=== PATIENT | male | born 1950 | race Caucasian/White ===

== ENCOUNTER 2025-01-01 18:25 | Inpatient (IN) | payer OTHER, MEDICAID ==
[~2025-01-01] VITALS: Ht 182.9 cm; Wt 69.2 kg
[2025-01-01 19:30] VITALS: BP 140/59; PULSE 55; RESP 18; TEMP 97.9; O2SAT 93
[2025-01-01] MEDS ORDERED: DOCU-412 PO (20:26)
[2025-01-01] MEDS ORDERED: POLY119P3 PO (20:26)
[2025-01-01] MEDS ORDERED: TRAZ-252 PO (20:26)
[2025-01-01] MEDS ORDERED: ROSU10TA72 PO (20:26)
[2025-01-01] MEDS ORDERED: FURO40TA6 PO (20:26)
[2025-01-01] MEDS ORDERED: MELA5TAB40 PO (20:26)
[2025-01-01] MEDS ORDERED: CYAN500T56 PO (20:26)
[2025-01-01] MEDS ORDERED: SENN-395 PO (20:26)
[2025-01-01] MEDS ORDERED: LANS-74 PO (20:26)
[2025-01-01] MEDS ORDERED: IPRA3AMP23 NEB (20:26)
[2025-01-01] MEDS ORDERED: MULT400T14 PO (20:26)
[2025-01-01] MEDS ORDERED: MIRT-89 PO (20:26)
[2025-01-01] MEDS ORDERED: ASCO500 PO (20:26)
[2025-01-01] MEDS ORDERED: AMIO200T73 PO (20:26)
[2025-01-01] MEDS ORDERED: ONDANSETRON HCL 4 MG/2 ML VIAL IVP PRN (20:45)
[2025-01-01] MEDS: DOCUSATE SODIUM 250 MG CAPSULE PO SCH (21:00)
[2025-01-01] MEDS ORDERED: DOCUSATE SODIUM 100 MG CAPSULE PO SCH (21:00)
[2025-01-01] MEDS ORDERED: MISC MED-CONVERTED FROM AMBULATORY (Ipratropium/Albuterol Sulfate (Ipratr-Albuterol 0.5-3 NEB SCH (21:00)
[2025-01-01 21:58] LABS: BASOPHILS % (AUTO) 0.3 % (0.0-2.0); EOSINOPHILS % (AUTO) 2.8 % (1.0-6.0); HEMATOCRIT 31.6 % (41-53); HEMOGLOBIN 10.3 g/dL (13.5-17.5); LYMPHOCYTES # (AUTO) 0.6 K/uL (1.0-4.8); LYMPHOCYTES % (AUTO) 14.2 % (22.0-44.0); MEAN CORPUSCULAR HEMOGLOBIN 29.8 pg (26.0-34.0); MEAN CORPUSCULAR HGB CONC 32.4 G/dL (31.0-37.0); MEAN CORPUSCULAR VOLUME 92 fL (80-100); MONOCYTES # (AUTO) 0.3 K/uL (0.1-1.0); MONOCYTES % (AUTO) 8.3 % (2.0-9.0); NEUTROPHILS % (AUTO) 74.4 % (40.0-70.0); PLATELET COUNT (AUTO) 145 K/uL (150-450); RED BLOOD CELL COUNT(AUTO) 3.45 MIL/uL (4.50-5.90); RED CELL DISTRIBUTION WIDTH 16.7 % (11.5-14.5); WHITE BLOOD COUNT (AUTO) 4.1 K/uL (4.5-11.0)
[2025-01-01 22:08] LABS: ANION GAP 7 mmol/L (8-16); CALCIUM, TOTAL 8.4 mg/dL (8.8-10.5); CARBON DIOXIDE 30 mmol/L (22-29); CHLORIDE 99 mmol/L (98-107); CREATININE 0.71 mg/dL (0.60-1.30); GLOMERULAR FILTR. RATE CALC > 60 mL/min (>60); GLUCOSE,RANDOM 97 mg/dL (70-110); POTASSIUM 4.1 mmol/L (3.5-5.1); SODIUM SERUM 136 mmol/L (136-145); UREA NITROGEN, BLOOD 10 mg/dL (7-18)
[2025-01-01 22:13] LABS: ALANINE AMINOTRANSFERASE 31 U/L (12-78); ALBUMIN 1.8 g/dL (3.4-5.0); ALKALINE PHOSPHATASE 87 U/L (46-116); ASPARTATE AMINOTRANSFERASE 28 U/L (15-37); BILIRUBIN,TOTAL 0.7 mg/dL (0.1-1.0)
[2025-01-01] MEDS: LANSOPRAZOLE 15 MG CAPSULE PO SCH (22:15)
[2025-01-01] MEDS: SENNOSIDES/DOCUSATE SODIUM 8.6-50 MG TABLET PO SCH (22:15)
[2025-01-01] MEDS: AMIODARONE HCL 200 MG TABLET PO SCH (22:15)
[2025-01-01] MEDS: ASCORBIC ACID 500 MG TABLET PO SCH (22:15)
[2025-01-01] MEDS: MIRTAZAPINE 15 MG TABLET PO SCH (22:15)
[2025-01-01] MEDS: TraZODone HCL 50 MG TABLET PO SCH (22:17)
[2025-01-02] MEDS: HEPARIN SODIUM,PORCINE 5,000 UNITS/ML VIAL SQ SCH
[2025-01-02 05:30] VITALS: BP 136/57; PULSE 56; RESP 18; TEMP 97.7; O2SAT 95
[2025-01-02 07:16] LABS: BASOPHILS % (AUTO) 0.3 % (0.0-2.0); EOSINOPHILS % (AUTO) 4.2 % (1.0-6.0); HEMATOCRIT 30.4 % (41-53); HEMOGLOBIN 9.9 g/dL (13.5-17.5); LYMPHOCYTES # (AUTO) 0.6 K/uL (1.0-4.8); LYMPHOCYTES % (AUTO) 15.2 % (22.0-44.0); MEAN CORPUSCULAR HEMOGLOBIN 29.9 pg (26.0-34.0); MEAN CORPUSCULAR HGB CONC 32.5 G/dL (31.0-37.0); MEAN CORPUSCULAR VOLUME 92 fL (80-100); MONOCYTES # (AUTO) 0.4 K/uL (0.1-1.0); MONOCYTES % (AUTO) 9.8 % (2.0-9.0); NEUTROPHILS # (AUTO) 2.7 K/uL (1.8-7.7); NEUTROPHILS % (AUTO) 70.5 % (40.0-70.0); PLATELET COUNT (AUTO) 169 K/uL (150-450); RED CELL DISTRIBUTION WIDTH 16.5 % (11.5-14.5); WHITE BLOOD COUNT (AUTO) 3.9 K/uL (4.5-11.0)
[2025-01-02 08:00] LABS: ANION GAP 6 mmol/L (8-16); CALCIUM, TOTAL 8.3 mg/dL (8.8-10.5); CARBON DIOXIDE 29 mmol/L (22-29); CHLORIDE 102 mmol/L (98-107); CREATININE 0.76 mg/dL (0.60-1.30); GLOMERULAR FILTR. RATE CALC > 60 mL/min (>60); GLUCOSE,RANDOM 95 mg/dL (70-110); POTASSIUM 3.9 mmol/L (3.5-5.1); SODIUM SERUM 137 mmol/L (136-145); UREA NITROGEN, BLOOD 9 mg/dL (7-18)
[2025-01-02] MEDS: CYANOCOBALAMIN 500 MCG TABLET PO SCH (08:43)
[2025-01-02] MEDS: ROSUVASTATIN CALCIUM 10 MG TABLET PO SCH (08:43)
[2025-01-02] MEDS: MULTIVITAMINS, THERAPEUTIC TABLET PO SCH (08:43)
[2025-01-02] MEDS: FUROSEMIDE 40 MG TABLET PO SCH (08:43)
[2025-01-02 08:52] VITALS: BP 130/56; PULSE 50; RESP 18; TEMP 97.7; O2SAT 92
[2025-01-02] MEDS: MAGNESIUM OXIDE 400 MG TABLET PO ONE (14:40)
[2025-01-02 16:46] VITALS: BP 130/56; PULSE 50; RESP 18; TEMP 97.5; O2SAT 92
[2025-01-02 19:14] VITALS: BP 128/58; PULSE 58; RESP 18; TEMP 98.1; O2SAT 95
[2025-01-03 05:35] VITALS: BP 126/63; PULSE 56; RESP 18; TEMP 98.1; O2SAT 95
[2025-01-03 07:13] VITALS: BP 124/65; PULSE 58; RESP 18; TEMP 98.4; O2SAT 96
[2025-01-03 15:06] VITALS: BP 117/58; PULSE 61; RESP 20; TEMP 98.1; O2SAT 95
[2025-01-03 19:00] VITALS: BP 141/60; PULSE 61; RESP 19; TEMP 97.8; O2SAT 96
[2025-01-03] MEDS: IPRATROPIUM BROMIDE 0.5 MG/2.5 ML NEB SOLUTION NEB SCH (20:42)
[2025-01-03] MEDS: ALBUTEROL SULFATE 2.5 MG/0.5 ML NEB SOLUTION NEB SCH (20:42)
[2025-01-03 20:47] VITALS: PULSE 55; RESP 18; O2SAT 91
[2025-01-03 20:50] VITALS: PULSE 55; RESP 18; O2SAT 91
[2025-01-04 04:00] VITALS: BP 131/60; PULSE 60; RESP 19; TEMP 97.8; O2SAT 95
[2025-01-04 07:52] VITALS: BP 114/66; PULSE 55; RESP 18; TEMP 97.3; O2SAT 93
[2025-01-04 14:06] VITALS: PULSE 51; PULSE 52; RESP 12; O2SAT 93
[2025-01-04 14:21] VITALS: PULSE 50; RESP 12; O2SAT 100
[2025-01-04 15:11] VITALS: BP 125/60; PULSE 55; RESP 18; TEMP 97.7; O2SAT 91
[2025-01-04 19:40] VITALS: BP 122/54; PULSE 52; RESP 18; TEMP 97.3; O2SAT 95
[2025-01-05] VITALS (11 sets, daily range): BP systolic 124–134; BP diastolic 49–62; PULSE 24–58; RESP 14–18; TEMP 97.3–98.1; O2SAT 93–100
[2025-01-06 06:30] VITALS: BP 128/61; PULSE 58; RESP 18; TEMP 98.1; O2SAT 97
[2025-01-06 07:48] VITALS: BP 120/60; PULSE 56; RESP 19; TEMP 97.5; O2SAT 94
[2025-01-06 08:51] VITALS: PULSE 58; RESP 18; O2SAT 96
[2025-01-06] MEDS ORDERED: CHLORHEXIDINE GLUCONATE 4% 118 ML TOPICAL LIQUID TP PRN (11:30)
[2025-01-06 15:51] VITALS: BP_SYST 128; BP_SYST 139; BP_DIAS 64; BP_DIAS 87; PULSE 58; RESP 20; TEMP 97.5; O2SAT 95
[2025-01-06 17:00] LABS: CANDIDA AURIS PCR,SURVEILLANCE Not Detected C(t) (Not Detectd)
[2025-01-06 19:48] VITALS: BP 128/68; PULSE 52; RESP 18; TEMP 97.5; O2SAT 95
[2025-01-07 04:52] VITALS: BP 111/58; PULSE 57; RESP 18; TEMP 97.7; O2SAT 95
[2025-01-07 08:10] VITALS: BP 139/69; PULSE 53; RESP 18; TEMP 97.7; O2SAT 99
[2025-01-07 17:38] VITALS: BP 137/61; PULSE 56; RESP 20; TEMP 97.7; O2SAT 96
[2025-01-07 20:16] VITALS: BP 112/58; PULSE 58; RESP 20; TEMP 97.6; O2SAT 98
[2025-01-08 04:19] VITALS: BP 121/64; PULSE 60; RESP 19; TEMP 97.8; O2SAT 96
[2025-01-08 07:11] VITALS: PULSE 64; RESP 18; O2SAT 95
[2025-01-08 07:39] VITALS: BP 134/57; PULSE 53; RESP 18; TEMP 97.7; O2SAT 100
[2025-01-08 19:32] VITALS: BP 134/58; PULSE 58; RESP 19; TEMP 97.7; O2SAT 95
[2025-01-09 04:40] VITALS: BP 136/59; PULSE 62; RESP 19; TEMP 98; O2SAT 95
[2025-01-09 07:41] VITALS: BP 111/40; PULSE 60; RESP 19; TEMP 97.5; O2SAT 96
[2025-01-09 11:56] LABS: BASOPHILS % (AUTO) 0.6 % (0.0-2.0); EOSINOPHILS % (AUTO) 1.1 % (1.0-6.0); HEMATOCRIT 35.5 % (41-53); HEMOGLOBIN 11.7 g/dL (13.5-17.5); LYMPHOCYTES # (AUTO) 0.6 K/uL (1.0-4.8); LYMPHOCYTES % (AUTO) 9.3 % (22.0-44.0); MEAN CORPUSCULAR HEMOGLOBIN 29.3 pg (26.0-34.0); MEAN CORPUSCULAR HGB CONC 32.9 G/dL (31.0-37.0); MEAN CORPUSCULAR VOLUME 89 fL (80-100); MONOCYTES # (AUTO) 0.6 K/uL (0.1-1.0); MONOCYTES % (AUTO) 10.2 % (2.0-9.0); NEUTROPHILS # (AUTO) 4.8 K/uL (1.8-7.7); NEUTROPHILS % (AUTO) 78.8 % (40.0-70.0); PLATELET COUNT (AUTO) 169 K/uL (150-450); RED BLOOD CELL COUNT(AUTO) 3.98 MIL/uL (4.50-5.90)
[2025-01-09 12:04] LABS: ANION GAP 5 mmol/L (8-16); CALCIUM, TOTAL 8.8 mg/dL (8.8-10.5); CARBON DIOXIDE 36 mmol/L (22-29); CHLORIDE 99 mmol/L (98-107); GLOMERULAR FILTR. RATE CALC > 60 mL/min (>60); GLUCOSE,RANDOM 105 mg/dL (70-110); POTASSIUM 4.3 mmol/L (3.5-5.1); SODIUM SERUM 140 mmol/L (136-145); UREA NITROGEN, BLOOD 22 mg/dL (7-18)
[2025-01-09] MEDS: RINGERS SOLUTION,LACTATED 500 ML IV ONE (12:30)
[2025-01-09 15:59] VITALS: BP 129/67; PULSE 59; RESP 19; TEMP 97.5; O2SAT 95
[2025-01-09 19:17] VITALS: PULSE 53; RESP 20; O2SAT 93
[2025-01-09 19:21] VITALS: BP 131/60; PULSE 53; RESP 18; TEMP 98.1; O2SAT 92
[2025-01-09] MEDS: AMIODARONE HCL 200 MG TABLET PO SCH (21:01)
[2025-01-10 05:23] VITALS: BP 126/52; PULSE 52; RESP 18; TEMP 98.2; O2SAT 95
[2025-01-10 07:43] VITALS: BP 136/62; PULSE 50; RESP 20; TEMP 97.5; O2SAT 95
[2025-01-10 08:59] VITALS: BP 117/58; PULSE 55; RESP 18; TEMP 97.8; O2SAT 97
[2025-01-10] MEDS: LIDOCAINE 5% TRANSDERMAL PATCH TD ONE (14:48)
[2025-01-10 15:32] LABS: CALCIUM, TOTAL 8.7 mg/dL (8.8-10.5); CARBON DIOXIDE 38 mmol/L (22-29); CREATININE 1.05 mg/dL (0.60-1.30); GLOMERULAR FILTR. RATE CALC > 60 mL/min (>60); GLUCOSE,RANDOM 121 mg/dL (70-110); POTASSIUM 4.1 mmol/L (3.5-5.1); SODIUM SERUM 137 mmol/L (136-145); UREA NITROGEN, BLOOD 21 mg/dL (7-18)
[2025-01-10 15:39] LABS: ANION GAP 2 mmol/L (8-16); CHLORIDE 97 mmol/L (98-107)
[2025-01-10 16:48] VITALS: BP 128/61; PULSE 52; RESP 18; TEMP 98.4; O2SAT 95
[2025-01-10 19:51] VITALS: BP 129/61; PULSE 52; RESP 18; TEMP 98.4; O2SAT 97
[2025-01-10 21:39] LABS: APPEARANCE,URINE CLEAR (CLEAR); BILIRUBIN,URINE NEGATIVE (NEGATIVE); COLOR,URINE YELLOW (YELLOW); GLUCOSE, URINE (UA) NEGATIVE (NEGATIVE); KETONES,URINE NEGATIVE (NEGATIVE); LEUKOCYTE ESTERASE ,URINE NEGATIVE (NEGATIVE); NITRATE,URINE NEGATIVE (NEGATIVE); OCCULT BLOOD,URINE NEGATIVE (NEGATIVE); PH,URINE 5.5 (5.0-8.0); PROTEIN,URINE NEGATIVE (NEGATIVE); SPECIFIC GRAVITIY, URINE 1.019 (1.003-1.030); UROBILINOGEN,URINE <=1.0 mg/dL (<=1.0)
[2025-01-10 21:55] LABS: BACTERIA,URINE Rare /HPF (None Seen); RBC,URINE 0-2 /HPF (0-2); SQUAMOUS EPITHELIAL CELL,UR Rare /LPF (None Seen); WBC,URINE 0-2 /HPF (0-5)
[2025-01-11] VITALS (8 sets, daily range): BP systolic 107–124; BP diastolic 57–66; PULSE 52–60; RESP 18–20; TEMP 97.5–98.1; O2SAT 93–100
[2025-01-12 05:30] VITALS: BP 109/49; PULSE 54; RESP 18; TEMP 97.5; O2SAT 94
[2025-01-12 07:08] LABS: BASOPHILS % (AUTO) 0.6 % (0.0-2.0); HEMATOCRIT 35.8 % (41-53); HEMOGLOBIN 11.9 g/dL (13.5-17.5); LYMPHOCYTES # (AUTO) 0.9 K/uL (1.0-4.8); LYMPHOCYTES % (AUTO) 14.7 % (22.0-44.0); MEAN CORPUSCULAR HGB CONC 33.1 G/dL (31.0-37.0); MEAN CORPUSCULAR VOLUME 88 fL (80-100); MONOCYTES # (AUTO) 0.5 K/uL (0.1-1.0); MONOCYTES % (AUTO) 7.8 % (2.0-9.0); NEUTROPHILS # (AUTO) 4.3 K/uL (1.8-7.7); NEUTROPHILS % (AUTO) 72.9 % (40.0-70.0); PLATELET COUNT (AUTO) 165 K/uL (150-450); RED BLOOD CELL COUNT(AUTO) 4.08 MIL/uL (4.50-5.90); RED CELL DISTRIBUTION WIDTH 16.8 % (11.5-14.5); WHITE BLOOD COUNT (AUTO) 5.8 K/uL (4.5-11.0)
[2025-01-12 07:22] LABS: ANION GAP 1 mmol/L (8-16); CALCIUM, TOTAL 8.6 mg/dL (8.8-10.5); CARBON DIOXIDE 37 mmol/L (22-29); CHLORIDE 99 mmol/L (98-107); CREATININE 0.89 mg/dL (0.60-1.30); GLOMERULAR FILTR. RATE CALC > 60 mL/min (>60); GLUCOSE,RANDOM 102 mg/dL (70-110); POTASSIUM 3.7 mmol/L (3.5-5.1); SODIUM SERUM 137 mmol/L (136-145); UREA NITROGEN, BLOOD 21 mg/dL (7-18)
[2025-01-12 08:00] VITALS: PULSE 59; RESP 18; O2SAT 96
[2025-01-12] MEDS: AMIODARONE HCL 200 MG TABLET PO SCH (08:49)
[2025-01-12 15:40] VITALS: BP 117/67; PULSE 55; RESP 18; TEMP 97.8; O2SAT 90
[2025-01-12 20:00] VITALS: PULSE 52; RESP 16; O2SAT 97
[2025-01-13] VITALS (9 sets, daily range): BP systolic 108–143; BP diastolic 49–70; PULSE 47–59; RESP 16–18; TEMP 97.5–98.4; O2SAT 90–99
[2025-01-14 05:44] VITALS: BP 129/56; PULSE 50; RESP 18; TEMP 97.7; O2SAT 95
[2025-01-14 07:32] VITALS: BP 124/58; PULSE 54; RESP 18; TEMP 97.9; O2SAT 96
[2025-01-14 08:44] VITALS: PULSE 51; RESP 20; O2SAT 93
[2025-01-14 14:59] VITALS: BP 128/61; PULSE 52; RESP 20; TEMP 98.4; O2SAT 95
[2025-01-14 20:38] VITALS: BP 113/55; PULSE 58; RESP 18; TEMP 97.4; O2SAT 94
[2025-01-14 20:54] VITALS: PULSE 55; RESP 16; RESP 20; O2SAT 95
[2025-01-15] VITALS (7 sets, daily range): BP systolic 117–148; BP diastolic 44–68; PULSE 52–57; RESP 18–20; TEMP 97.5–98.4; O2SAT 95–100
[2025-01-16 05:10] VITALS: BP 132/65; PULSE 52; RESP 18; TEMP 97.3; O2SAT 97
[2025-01-16 08:07] VITALS: BP 121/56; PULSE 51; RESP 18; TEMP 97.5; O2SAT 98
[2025-01-16 08:14] VITALS: PULSE 53; RESP 16; O2SAT 97
[2025-01-16 15:31] VITALS: BP 112/52; PULSE 60; RESP 18; TEMP 98.2; O2SAT 95
[2025-01-16 19:33] VITALS: BP 128/66; PULSE 52; RESP 52; TEMP 97.5; O2SAT 95
[2025-01-17 04:12] VITALS: BP 128/78; PULSE 57; RESP 18; TEMP 97.5; O2SAT 100
[2025-01-17 08:00] VITALS: BP 111/61; PULSE 66; RESP 18; TEMP 98.1; O2SAT 96
[2025-01-17 20:39] VITALS: BP 107/50; PULSE 56; RESP 18; TEMP 98.8; O2SAT 98
[2025-01-18 02:46] VITALS: PULSE 54; RESP 16; O2SAT 96
[2025-01-18 03:00] VITALS: PULSE 56; RESP 16; O2SAT 99
[2025-01-18 05:48] VITALS: BP 124/62; PULSE 58; RESP 18; TEMP 97.5; O2SAT 95
[2025-01-18 08:52] VITALS: BP 130/58; PULSE 52; RESP 18; TEMP 97.7; O2SAT 95
[2025-01-18 20:02] VITALS: BP 104/48; PULSE 56; RESP 18; TEMP 97.5; O2SAT 97
[2025-01-19 07:18] VITALS: PULSE 51; RESP 18; O2SAT 98
[2025-01-19 08:01] VITALS: BP 124/62; PULSE 50; RESP 18; TEMP 97.3; O2SAT 98
[2025-01-19 15:55] VITALS: BP 112/54; PULSE 47; RESP 18; TEMP 97.5; O2SAT 98
[2025-01-19 20:00] VITALS: BP 122/59; PULSE 50; RESP 19; TEMP 97.5; O2SAT 95
[2025-01-19 20:29] VITALS: PULSE 51; RESP 18; O2SAT 98
[2025-01-19 20:44] VITALS: PULSE 51; RESP 18; O2SAT 99
[2025-01-20] VITALS (7 sets, daily range): BP systolic 102–111; BP diastolic 53–61; PULSE 50–70; RESP 18–20; TEMP 97.3–98.6; O2SAT 91–99
[2025-01-20] MEDS: MELATONIN 5 MG TABLET PO PRN (20:32)
[2025-01-21] VITALS (11 sets, daily range): BP systolic 112–145; BP diastolic 57–70; PULSE 50–75; RESP 16–20; TEMP 97.5–97.7; O2SAT 94–99
[2025-01-22 04:50] VITALS: BP 119/87; PULSE 58; RESP 20; TEMP 97.5; O2SAT 97
[2025-01-22 08:33] VITALS: BP 133/62; PULSE 54; RESP 17; TEMP 97.8; O2SAT 96
[2025-01-22 16:00] VITALS: BP 129/68; PULSE 59; RESP 18; TEMP 98; O2SAT 97
[2025-01-22 19:53] VITALS: BP 120/81; PULSE 78; RESP 18; TEMP 98.6; O2SAT 96
[2025-01-23 04:20] VITALS: BP 120/65; PULSE 60; RESP 19; TEMP 97.5; O2SAT 97
[2025-01-23 08:00] VITALS: PULSE 70; RESP 16; O2SAT 98
[2025-01-23 08:22] VITALS: BP 123/53; PULSE 48; RESP 18; TEMP 97.7; O2SAT 96
[2025-01-23 16:02] VITALS: BP 130/59; PULSE 64; RESP 18; TEMP 98; O2SAT 98
[2025-01-23 20:00] VITALS: BP 104/63; PULSE 53; RESP 20; TEMP 98.4; O2SAT 95
[2025-01-23 20:10] VITALS: PULSE 66; RESP 16; O2SAT 98
[2025-01-24 04:00] VITALS: BP 139/84; PULSE 55; RESP 18; TEMP 98.1; O2SAT 95
[2025-01-24 07:00] VITALS: BP 128/79; PULSE 60; RESP 18; TEMP 98.1; O2SAT 96
[2025-01-24] MEDS ORDERED: BENZOCAINE/MENTHOL [CEPACOL] LOZENGE PO PRN (11:45)
[2025-01-24 13:42] VITALS: PULSE 52; RESP 18; O2SAT 94
[2025-01-24 13:57] VITALS: PULSE 52; RESP 18; O2SAT 94
[2025-01-24 15:00] VITALS: BP 104/50; PULSE 54; RESP 18; TEMP 98; O2SAT 99
[2025-01-24 20:41] VITALS: BP 114/64; PULSE 52; RESP 18; TEMP 97.7; O2SAT 95
[2025-01-25 05:32] VITALS: BP 114/53; PULSE 53; RESP 18; TEMP 97.5; O2SAT 95
[2025-01-25 08:00] VITALS: BP 121/59; PULSE 54; RESP 19; TEMP 97.7; O2SAT 94
[2025-01-25 16:06] VITALS: BP 99/80; PULSE 51; RESP 18; TEMP 97.9; O2SAT 95
[2025-01-25 19:16] VITALS: BP 117/58; PULSE 60; RESP 18; TEMP 97.5; O2SAT 94
[2025-01-26 04:50] VITALS: BP 125/64; PULSE 52; RESP 18; TEMP 97.8; O2SAT 96
[2025-01-26 08:08] VITALS: PULSE 61; RESP 18; O2SAT 95
[2025-01-26 16:14] VITALS: BP 124/54; PULSE 87; RESP 18; TEMP 97.9; O2SAT 96
[2025-01-26 19:55] VITALS: BP 127/72; PULSE 57; RESP 18; TEMP 97.5; O2SAT 96
[2025-01-27 05:00] VITALS: BP 131/64; PULSE 50; RESP 18; TEMP 98.1; O2SAT 95
[2025-01-27 07:06] VITALS: PULSE 55; RESP 18; O2SAT 97
[2025-01-27 08:07] VITALS: BP 121/84; PULSE 78; RESP 18; TEMP 97.7; O2SAT 98
[2025-01-27 16:35] VITALS: BP 118/72; PULSE 70; RESP 18; TEMP 98; O2SAT 98
[2025-01-27 20:41] VITALS: BP 122/55; PULSE 54; RESP 18; TEMP 98.1; O2SAT 96
[2025-01-28 04:48] VITALS: BP 121/69; PULSE 55; RESP 20; TEMP 98.2; O2SAT 96
[2025-01-28 07:48] VITALS: BP 145/68; PULSE 53; RESP 18; TEMP 97.3; O2SAT 96
[2025-01-28 15:51] VITALS: BP 113/55; PULSE 53; RESP 18; TEMP 98.1; O2SAT 96
[2025-01-28 20:15] VITALS: BP 115/63; PULSE 57; RESP 18; TEMP 98.1; O2SAT 100
[2025-01-29 05:31] VITALS: BP 146/64; PULSE 54; RESP 18; TEMP 97.7; O2SAT 96
[2025-01-29 07:39] VITALS: BP 130/73; PULSE 53; RESP 18; TEMP 97.9; O2SAT 100
[2025-01-29 15:32] VITALS: BP 112/61; PULSE 49; RESP 18; TEMP 98.1; O2SAT 98
[2025-01-29 21:08] VITALS: BP 119/55; PULSE 54; RESP 18; TEMP 97.9; O2SAT 98
[2025-01-30 05:07] VITALS: BP 120/71; PULSE 55; RESP 18; TEMP 97.5; O2SAT 97
[2025-01-30 07:28] VITALS: BP 118/74; PULSE 58; RESP 18; TEMP 97.9; O2SAT 97
[2025-01-30 15:28] VITALS: BP 122/71; PULSE 54; RESP 18; TEMP 98.1; O2SAT 96
[2025-01-30 20:16] VITALS: BP 113/61; PULSE 55; RESP 18; TEMP 98.1; O2SAT 97
[2025-01-31 05:19] VITALS: BP 139/72; PULSE 60; RESP 18; TEMP 98.2; O2SAT 97
[2025-01-31 08:07] VITALS: BP 123/73; PULSE 62; RESP 19; TEMP 97.9; O2SAT 95
[2025-01-31] MEDS: POLYETHYLENE GLYCOL 3350 17 GM PACKET PO PRN (08:54)
[2025-01-31 16:23] VITALS: BP 131/81; PULSE 79; RESP 20; TEMP 97.5; O2SAT 98
[2025-01-31 19:30] VITALS: BP 114/75; PULSE 61; RESP 18; TEMP 97.9; O2SAT 96
[2025-02-01 05:07] VITALS: BP 124/72; PULSE 53; RESP 17; TEMP 97.7; O2SAT 95
[2025-02-01 07:30] VITALS: BP 115/59; PULSE 46; RESP 19; TEMP 97.5; O2SAT 97
[2025-02-01 08:53] VITALS: BP 137/55; PULSE 51; RESP 18; TEMP 97.7; O2SAT 99
[2025-02-01 15:00] VITALS: BP 108/61; PULSE 54; RESP 19; TEMP 98.1; O2SAT 98
[2025-02-01 19:25] VITALS: BP 114/67; PULSE 55; RESP 17; TEMP 97.7; O2SAT 94
[2025-02-02 05:42] VITALS: BP 121/62; PULSE 53; RESP 18; TEMP 97.9; O2SAT 97
[2025-02-02 07:52] VITALS: BP_SYST 128; BP_DIAS 61; BP_DIAS 81; PULSE 50; RESP 16; TEMP 97.5; O2SAT 98
[2025-02-02 15:40] VITALS: BP 115/66; PULSE 54; RESP 18; TEMP 97.3; O2SAT 95
[2025-02-02 20:13] VITALS: BP 122/72; PULSE 56; RESP 20; TEMP 97.6; O2SAT 96
[2025-02-03 05:00] VITALS: BP 104/64; PULSE 54; RESP 16; TEMP 97.7; O2SAT 97
[2025-02-03 06:39] LABS: BASOPHILS % (AUTO) 0.5 % (0.0-2.0); HEMATOCRIT 35.1 % (41-53); HEMOGLOBIN 11.6 g/dL (13.5-17.5); LYMPHOCYTES # (AUTO) 0.8 K/uL (1.0-4.8); LYMPHOCYTES % (AUTO) 13.4 % (22.0-44.0); MEAN CORPUSCULAR HEMOGLOBIN 28.4 pg (26.0-34.0); MEAN CORPUSCULAR VOLUME 86 fL (80-100); MONOCYTES # (AUTO) 0.3 K/uL (0.1-1.0); MONOCYTES % (AUTO) 5.8 % (2.0-9.0); NEUTROPHILS # (AUTO) 4.6 K/uL (1.8-7.7); NEUTROPHILS % (AUTO) 78.3 % (40.0-70.0); PLATELET COUNT (AUTO) 120 K/uL (150-450); RED BLOOD CELL COUNT(AUTO) 4.08 MIL/uL (4.50-5.90); WHITE BLOOD COUNT (AUTO) 5.9 K/uL (4.5-11.0)
[2025-02-03 06:53] LABS: ANION GAP 1 mmol/L (8-16); CALCIUM, TOTAL 8.5 mg/dL (8.8-10.5); CARBON DIOXIDE 38 mmol/L (22-29); CHLORIDE 100 mmol/L (98-107); CREATININE 0.87 mg/dL (0.60-1.30); GLOMERULAR FILTR. RATE CALC > 60 mL/min (>60); GLUCOSE,RANDOM 96 mg/dL (70-110); POTASSIUM 3.9 mmol/L (3.5-5.1); SODIUM SERUM 138 mmol/L (136-145); UREA NITROGEN, BLOOD 19 mg/dL (7-18)
[2025-02-03 08:59] VITALS: BP 138/70; PULSE 49; RESP 18; TEMP 97.7; O2SAT 97
[2025-02-03 14:28] VITALS: BP 108/58; PULSE 54; RESP 18; TEMP 98.1; O2SAT 90
[2025-02-03 19:39] VITALS: BP 129/54; PULSE 50; RESP 18; TEMP 98.1; O2SAT 98
[2025-02-03 20:45] VITALS: PULSE 59; RESP 18; O2SAT 95; O2SAT 96
[2025-02-03 21:00] VITALS: PULSE 59; RESP 18; O2SAT 98
[2025-02-04 05:06] VITALS: BP 123/71; PULSE 52; RESP 18; TEMP 97.9; O2SAT 97
[2025-02-04 08:05] VITALS: BP 123/66; PULSE 51; RESP 18; TEMP 98.1; O2SAT 100
[2025-02-04 15:08] VITALS: BP 111/62; PULSE 53; RESP 19; TEMP 97.7; O2SAT 98
[2025-02-04 20:45] VITALS: BP 111/55; PULSE 56; RESP 20; TEMP 97.7; O2SAT 95
[2025-02-05 04:30] VITALS: BP 122/79; PULSE 58; RESP 18; TEMP 97.5; O2SAT 93
[2025-02-05 07:57] VITALS: BP 129/59; PULSE 55; RESP 18; TEMP 97.5; O2SAT 91
[2025-02-05 15:23] VITALS: BP 112/64; PULSE 57; RESP 19; TEMP 97.7; O2SAT 93
[2025-02-05 19:48] VITALS: BP 127/65; PULSE 65; RESP 19; TEMP 97.3; O2SAT 91
[2025-02-06 05:20] VITALS: BP 145/62; PULSE 53; RESP 16; TEMP 97.6; O2SAT 92
[2025-02-06 07:32] VITALS: BP 117/72; PULSE 53; RESP 18; TEMP 97.5; O2SAT 92
[2025-02-06 15:20] VITALS: BP 106/64; PULSE 58; RESP 19; TEMP 97.3; O2SAT 92
[2025-02-06 19:53] VITALS: BP 107/61; PULSE 54; RESP 18; TEMP 98.1; O2SAT 91
[2025-02-07 04:20] VITALS: BP 115/61; PULSE 53; RESP 18; TEMP 98.4; O2SAT 93
[2025-02-07 08:20] VITALS: BP 124/67; PULSE 53; RESP 20; TEMP 97.9; O2SAT 92
[2025-02-07 15:30] VITALS: BP 119/54; PULSE 52; RESP 20; TEMP 98.1; O2SAT 94
[2025-02-07 19:58] VITALS: BP 116/98; PULSE 55; RESP 18; TEMP 98.2; O2SAT 93
[2025-02-08 05:17] VITALS: BP 101/62; PULSE 54; RESP 18; TEMP 98.1; O2SAT 93
[2025-02-08 07:50] VITALS: BP 104/80; PULSE 56; RESP 18; TEMP 98.3; O2SAT 94
[2025-02-08 15:53] VITALS: BP 114/59; PULSE 52; RESP 20; TEMP 97.9; O2SAT 94
[2025-02-08 19:53] VITALS: BP 120/83; PULSE 60; RESP 20; TEMP 98.1; O2SAT 97
[2025-02-09 04:11] VITALS: BP 123/61; PULSE 55; RESP 19; TEMP 97.6; O2SAT 92
[2025-02-09 08:34] VITALS: BP 122/58; PULSE 50; RESP 18; TEMP 97.7; O2SAT 94
[2025-02-09 16:05] VITALS: BP 126/68; PULSE 51; RESP 18; TEMP 97.7; O2SAT 95
[2025-02-09 20:01] VITALS: BP 121/67; PULSE 61; RESP 18; TEMP 97.7; O2SAT 92
[2025-02-10 04:56] VITALS: BP 122/57; PULSE 54; RESP 18; TEMP 97.5; O2SAT 93
[2025-02-10 07:30] VITALS: BP 129/47; PULSE 51; RESP 18; TEMP 98.2; O2SAT 99
[2025-02-10] MEDS ORDERED: AMIO200T73 PO (14:16)
[2025-02-10] MEDS ORDERED: ALBU2.5V39 NEB (14:18)
[2025-02-10] MEDS ORDERED: BENZ1LOZ50 PO (14:20)
[2025-02-10] MEDS ORDERED: HEPA500018 SQ (14:22)
== END 2025-02-10 13:37 | disposition short-term general hospital (02) | DRG 442 ==
LOC: 4E 19:25
PROVIDERS: ADMIT Internal Medicine; ATTEND Internal Medicine
PROC: GZ52ZZZ Individual Psychotherapy, Cognitive (ICD-10-PCS; principal; 2025-01-03)
PROC: GZ56ZZZ Individual Psychotherapy, Supportive (ICD-10-PCS; 2025-01-03)
DX: K76.6 Portal hypertension (principal); F33.2 Major depressive disorder, recurrent severe without psychotic features; R45.851 Suicidal ideations; J96.11 Chronic respiratory failure with hypoxia; I50.32 Chronic diastolic (congestive) heart failure; N17.9 Acute kidney failure, unspecified; Z59.00 Homelessness unspecified; D64.9 Anemia, unspecified; I10 Essential (primary) hypertension; K74.60 Unspecified cirrhosis of liver; K21.9 Gastro-esophageal reflux disease without esophagitis; E78.5 Hyperlipidemia, unspecified; J44.9 Chronic obstructive pulmonary disease, unspecified; M54.50 Low back pain, unspecified; Z99.81 Dependence on supplemental oxygen; Z79.899 Other long term (current) drug therapy
CPT/HCPCS: 71045; 76770; 80048; 80053; 81001; 83735; 85025; 87081; 87340; 87481; 92526; 92610; 94640; 97116; 97162; 97167; 97530; 97535; G0378; J1644; 36415-L1; 36415-TC; J7613